=== PATIENT | male | born 1985 | race African-American/Black ===

== ENCOUNTER 2018-11-29 14:38 | Emergency (ER) | payer OTHER ==
[2018-11-29] MEDS ORDERED: FAMOTIDINE 20 MG TABLET PO ONE (15:26)
[2018-11-29] MEDS ORDERED: PREDNISONE 20 MG TABLET PO ONE (15:26)
--- NOTE | 2018-11-29 15:29 | ER Document Report ---
ED Medical Screen (RME) - General Chief Complaint: Low Blood Pressure Stated Complaint: DIZZY/BLOOD PRESSURE ISSUES Time Seen by Provider: 11/29/18 15:12 Notes: RAPID MEDICAL EVALUATION DISCLOSURE I have seen this patient as part of a Rapid Medical Evaluation and, if applicable, placed any initially appropriate orders. The patient will be seen and fully evaluated, including a full history and physical exam, by a provider (in Main ED or Fast Track) when a room becomes available. 33-year-old male no known seasonal or medication allergies sent here by the [facility] via [facility] after he had an allergic reaction to an intramuscular dose of Toradol. He had presented to the clinic with complaints of headache and was given Toradol for this reason. He was given in his left upper extremity and within 20-30 seconds of administration, he felt as though his entire arm was on fire and had some tingling at his fingertips followed shortly thereafter with generalized weakness lightheadedness and syncope. He does not know how long the symptoms lasted before complete resolution however in the clinic sent him here because his blood pressure was in the 50s systolic. Patient has never been prescribed an EpiPen nor has he ever had an anaphylactic reaction. He did not have any chest pain shortness of breath. His headache has completely resolved and he currently has no symptoms. EXAM CTAB RRR No rash visualized TRAVEL OUTSIDE OF THE [place] IN LAST 30 DAYS: No - Related Data Allergies/Adverse Reactions: No Known Allergies Allergy (Verified 11/29/18 14:50) Past Medical History - Social History Chew tobacco use (# tins/day): No Frequency of alcohol use: Rare Drug Abuse: None Renal/ Medical History: Denies: Hx Peritoneal Dialysis Physical Exam - Vital signs Vitals: Temp Pulse Resp BP Pulse Ox 97.9 F 83 18 121/80 98 11/29/18 14:51 11/29/18 14:51 11/29/18 14:51 11/29/18 14:51 11/29/18 14:51 Course - Vital Signs Vital signs: Temp Pulse Resp BP Pulse Ox 97.9 F 83 18 121/80 98 11/29/18 14:51 11/29/18 14:51 11/29/18 14:51 11/29/18 14:51 11/29/18 14:51
--- NOTE | 2018-11-29 17:21 | ER Document Report ---
HPI - HPI Patient complains to provider of: Medication reaction Time Seen by Provider: 11/29/18 15:12 Onset: Other - 215 Onset/Duration: Gone Pain Level: Denies Context: Patient states that he was at [facility] and received a intramuscular Toradol injection around 215. Patient states that he felt like the nurse injected the medication very slowly and he could feel the medication spreading into his arm causing a tingling sensation. Patient states that he then started to feel sweaty and nauseated and felt like he might pass out. Patient states that after he laid back on a chair after about 15 minutes his symptoms resolved and he was feeling much better. Patient denied any episode of shortness of breath, difficulty breathing, vomiting skin rash, swelling or loss of consciousness. Associated Symptoms: Nausea, Other - Near faint. denies: Nonproductive cough, Fever Exacerbated by: Denies Relieved by: Denies Similar symptoms previously: No Recently seen / treated by doctor: Yes - ROS ROS below otherwise negative: Yes Systems Reviewed and Negative: Yes All other systems reviewed and negative - CONSTITUTIONAL Constitutional: DENIES: Fever, Chills - EENT EENT: DENIES: Sore Throat - NEURO Neurology: REPORTS: Weakness. DENIES: Headache - CARDIOVASCULAR Cardiovascular: DENIES: Chest pain - RESPIRATORY Respiratory: DENIES: Trouble Breathing, Coughing - GASTROINTESTINAL Gastrointestinal: DENIES: Nausea, Patient vomiting - MUSCULOSKELETAL Musculoskeletal: DENIES: Back Pain, Neck Pain - DERM Skin Color: Normal, [place] Skin Problems: None Past Medical History - General Information source: Patient - Social History Smoking Status: Never Smoker Chew tobacco use (# tins/day): No Frequency of alcohol use: Rare Drug Abuse: None Occupation: Table Lives with: Family Family History: Reviewed & Not Pertinent Patient has suicidal ideation: No Patient has homicidal ideation: No Pulmonary Medical History: Reports: Hx Sleep Apnea Neurological Medical History: Reports: Hx Migraine Renal/ Medical History: Denies: Hx Peritoneal Dialysis Psychiatric Medical History: Reports: Hx Post Traumatic Stress Disorder Surgical Hx: Negative Vertical Provider Document - CONSTITUTIONAL Agree With Documented VS: Yes Exam Limitations: No Limitations General Appearance: WD/WN, No Apparent Distress - INFECTION CONTROL TRAVEL OUTSIDE OF THE [place] IN LAST 30 DAYS: No - HEENT HEENT: Atraumatic, Normal ENT Exam, Normocephalic - NECK Neck: Normal Inspection, Supple. negative: Lymphadenopathy-Left, Lymphadenopathy-Right - RESPIRATORY Respiratory: Breath Sounds Normal, No Respiratory Distress - CARDIOVASCULAR Cardiovascular: Regular Rate, Regular Rhythm, No Murmur - GI/ABDOMEN Gastrointestinal: Abdomen Soft, Abdomen Non-Tender, No Organomegaly, Normal Bowel Sounds - BACK Back: Normal Inspection - MUSCULOSKELETAL/EXTREMETIES Musculoskeletal/Extremeties: MAEW, FROM - NEURO Level of Consciousness: Awake, Alert, Appropriate Motor/Sensory: No Motor Deficit - DERM Integumentary: Warm, Dry, No Rash Course - Re-evaluation Re-evalutation: 11/29/18 17:20 Patient presents with symptoms consistent with a near syncopal vasovagal episode. Patient presently denies any complaints. Patient did not report any difficulty breathing, hives, rash, swelling or chest pain symptoms. Patient states that he had left arm pain he felt nauseated and got a little diaphoretic. Patient states that his symptoms resolved after he was placed in a supine posi tion and completely resolved after about [address] Abraham regarding patient presentation. Agrees with plan for EKG, does not recommend any additional tests or medications to treat what seems to be a vasovagal near syncopal episode. 11/29/18 18:14 Dr. Abraham reviewed patient's EKG, no additional testing advised at this time. Patient stable for discharge. Patient continues to deny any complaints at this time. - Vital Signs Vital signs: Temp Pulse Resp BP Pulse Ox 97.9 F 83 18 121/80 98 11/29/18 14:51 11/29/18 14:51 11/29/18 14:51 11/29/18 14:51 11/29/18 14:51 Discharge - Discharge Clinical Impression: Vasovagal near syncope Condition: Stable Disposition: HOME, SELF-CARE Instructions: Vasovagal Symptoms ([facility]) Additional Instructions: Return immediately for any new or worsening symptoms Followup with your primary care provider, call tomorrow to make a followup appointment Referrals: [facility] [Primary Care Provider] - Follow up as needed
[2018-11-29 18:57] VITALS: BP 113/81
--- NOTE | 2018-11-29 20:34 | EKG REPORT ---
SEVERITY:- ABNORMAL ECG - SINUS RHYTHM PROBABLE INFERIOR INFARCT, OLD : Confirmed by: Quincy Chaney MD 29-Nov-2018 20:32:59
== END 2018-11-29 18:58 | disposition home or self-care (01) ==
LOC: ER 14:38
DX: R55 Syncope and collapse (principal); R11.0 Nausea; R61 Generalized hyperhidrosis
CPT/HCPCS: 93005; 99285; 93010; J7512